=== PATIENT | male | born 2000 | race Caucasian/White ===

== ENCOUNTER 2024-09-03 13:25 | Emergency (ER) | payer OTHER, SELFPAY ==
[2024-09-03] VITALS (10 sets, daily range): BP systolic 117–143; BP diastolic 70–92; PULSE 58–65; RESP 16; TEMP 35.9; O2SAT 98–100; BMI 19.4
--- OUTSIDE RECORDS SUMMARY | 2024-09-03 13:27 | XMS_ITS | Clinical Summary ---
Author Organization [facility] Address [address] [address] Phone Care Team Providers Care Air Intercept Controller Supervisor Name Role Phone Choice, No Pcp-Patient Primary Care Provider Kamilla vailable Allergies Active Allergy Reactions Criticality Noted Date Comments Penicillins Hives High 11/22/2021 Medications No known medications Social History Tobacco Use Types Packs/Day Years Used Date Smoking Tobacco: Never Assessed Sex and Gender Information Value Date Recorded Sex Assigned at Not on file Legal Sex Male 9:46 AM CDT Gender Identity Not on file Sexual Orientation Not on file Last Filed Vital Signs Vital Sign Reading Time Taken Comments Blood Pressure 116/70 11/22/2021 8:10 PM CDT Pulse 75 11/22/2021 8:10 PM CDT Temperature 36.5 C (97.7 F) 11/22/2021 8:10 PM CDT Respiratory Rate 16 11/22/2021 8:10 PM CDT Oxygen Saturation 100% 11/22/2021 8:10 PM CDT Inhaled Oxygen Concentration - - Weight - - Height - - Body Mass Index - - Plan of Treatment Not on file Care Teams Air Intercept Controller Supervisor Relationship Specialty Start Date End Date Choice, No Pcp-Patient PCP - General 11/22/21
--- NOTE | 2024-09-03 13:50 | CRLHL7_ITS ---
For Patients: As a result of the Century Cures Act, medical imaging exams and procedure reports are released immediately into your electronic medical record. You may view this report before your referring provider. If you have questions, please contact your health care provider. Indication: FALL HIT HEAD Technique: CT of the head without contrast. Coronal and sagittal reformats. Bone and soft tissue windows. Comparison: No prior studies available for comparison at this institution. Findings: No acute intracranial hemorrhage or extra-axial collection. No evidence of acute cortical infarction. No mass effect or midline shift. Normal cerebral volume. The ventricles are normal in size, shape and contour. There is normal bae and white matter differentiation. The orbital contents are normal. No calvarial fractures. No lytic or sclerotic osseous lesions within the calvarium or skull base. Scalp and other imaged soft tissue structures are normal. Mastoid air cells are clear. Paranasal sinuses are well aerated. Impression: No acute intracranial abnormality. Please note that all CT scans at this facility use dose modulation, iterative reconstruction, and/or weight-based dosing when appropriate to reduce radiation dose to as low as reasonably achievable. Dictated by Royer Horner MD @ 09/03/2024 2:22:56 PM (Electronically Signed)
--- NOTE | 2024-09-03 13:53 | ED.HEATRA ---
HPI - Head Injury General Chief complaint: Head Injury/Pain Stated complaint: Fell and hit head Time Seen by Provider: 09/03/24 13:48 History of Present Illness HPI Narrative: This 23-year-old male comes in because of a head injury that occurred just prior to arrival. He was bent over working on a tub and fell backwards hitting his head in the occipital region. He states that he did not have loss of consciousness but shortly after when he got up he felt woozy and felt like his vision was turning white temporarily. He came in with his brother by private vehicle and the nurse noted that he seemed to be a bit unsteady when ambulating. He is not reporting headache or neck pain. He does have a small abrasion on the occipital region. Related Data Home Medications ?Medication ?Instructions ?Recorded ?Confirmed No Known Home Medications 09/03/24 09/03/24 Allergies Allergy/AdvReac Type Severity Reaction Status Date / Time Penicillins Allergy Verified 09/03/24 12:51 Review of Systems Status of ROS: Reports: 10 or more systems reviewed and unremarkable except as noted in History and below Narrative: Constitutional: No fevers, no weight gain or loss. Eyes: No discharge. No vision changes. HENT: No congestion, no sore throat, no ear pain. Cardiovascular: No chest pain, no palpitations. Respiratory: No shortness of breath, no wheezes, no cough. Gastrointestinal: No abdominal pain, no vomiting, no diarrhea. Genitourinary: No dysuria, no hematuria. Musculoskeletal: Normal range of motion. Skin: No rashes, no pruritis. Neurological: No dizziness, weakness, sensory change, speech change. Endo/Heme/Allergies: No bruising or bleeding. No polydipsia. Pysch: no suicidality, no anxiety, no insomnia. All other systems reviewed and are negative. Exam Narrative: Exam Narrative: Primary Survey: Vital Signs are within normal limits. Airway: Open. Breathing: Easy. Circulation: no obvious bleeding; normal capillary refill. Disability: GCS is 15. Normal pupillary response and motor movements. Secondary Survey: Head: Small superficial abrasion in the upper occipital region with no active bleeding. Small amount of swelling also in this area. Neck: No midline tenderness. ROM intact. Chest: Non tender. No external signs of trauma. Abdomen: Non tender. No rebound tenderness. Normal bowel sounds. Pelvis/Genitals: No tenderness to A/P and lateral stress. No blood at the urethral meatus. Extremities: Atraumatic. Back: No midline tenderness. No sign of injury. Primary and Secondary surveys are completed. The patient's GCS is 15. Const: Vital Signs, click to edit/add: Vital Signs - 24 hr 09/03/24 13:42 09/03/24 14:00 09/03/24 14:01 Temperature 96.7 F L Pulse Rate 65 60 Pulse Rate [Pulse Oximeter] 58 L Respiratory Rate 16 16 Blood Pressure 137/87 Blood Pressure [Ri ght Upper Arm] 142/88 H Pulse Oximetry 100 98 100 Oxygen Delivery Me thod Room Air 09/03/24 14:11 09/03/24 14:15 09/03/24 14:22 Temperature Pulse Rate 60 63 63 Pulse Rate [Pulse Oximeter] Respiratory Rate 16 16 Blood Pressure 143/91 H 122/79 Blood Pressure [Ri ght Upper Arm] Pulse Oximetry 100 100 99 Oxygen Delivery Me thod Room Air Course Vital Signs Vital signs: Initial Vital Signs Temperature 96.7 F L 09/03/24 13:42 Temperature Source Temporal Artery Scan 09/03/24 13:42 Pulse Rate 58 L 09/03/24 13:42 Respiratory Rate 16 09/03/24 13:42 Blood Pressure 142/88 H 09/03/24 13:42 Blood Pressure Mean 106 H 09/03/24 13:42 Blood Pressure Position Sitting 09/03/24 13:42 Pulse Oximetry 100 09/03/24 13:42 Oxygen Delivery Method Room Air 09/03/24 13:42 Vital Signs Temperature 96.7 F L 09/03/24 13:42 Pulse Rate 58 L 09/03/24 13:42 Respiratory Rate 16 09/03/24 13:42 Blood Pressure 142/88 H 09/03/24 13:42 Pulse Oximetry 100 09/03/24 13:42 Oxygen Delivery Method Room Air 09/03/24 13:42 Temperature 96.7 F L 09/03/24 13:42 Pulse Rate 63 09/03/24 14:22 Respiratory Rate 16 09/03/24 14:22 Blood Pressure 122/79 09/03/24 14:22 Pulse Oximetry 99 09/03/24 14:22 Oxygen Delivery Method Room Air 09/03/24 14:22 MDM - Head Injury MDM Narrative Medical decision making narrative: This patient comes in for evaluation of a head injury that occurred just prior to arrival. He has normal neurologic exam and has a small area of abrasion with rather mild underlying swelling in the occipital region of his head. He does not have any neck pain. His back appears normal. Actually does not report any headache now either. CT scan of his head is obtained and shows no acute findings. The patient is okay to be discharged home. Imaging Data CT scan - head: Radiologist's impression: No acute intracranial abnormality. Discharge Plan Discharge Clinical Impression: Closed head injury Patient Disposition: Home, Self-Care Condition: Improved Additional Instructions: Use [id number] medicines as needed and directed. Increase activity as tolerated. Follow up with MD return if worsening. Prescriptions: No Action No Known Home Medications Follow Up/Referrals: Provider,Not a Local [Primary Care Provider] - Stand Alone Forms: [employer] Info Instructions
--- OUTSIDE RECORDS SUMMARY | 2024-09-03 14:32 | XMS_ITS | Clinical Summary ---
Author Organization [facility] Address [address] [address] Phone Care Team Providers Care Rope Laying Machine Operator Name Role Phone Choice, No Pcp-Patient Primary [...] of Treatment Not on file Care Teams Rope Laying Machine Operator Relationship Specialty Start Date End Date Choice, No Pcp-Patient PCP - General 11/22/21
== END 2024-09-03 14:48 | disposition home or self-care (01) ==
PROVIDERS: Emergency Provider Emergency Medicine Emergency Medical Services
DX: S09.90XA Unspecified injury of head, initial encounter (principal); W18.00XA Striking against unspecified object with subsequent fall, initial encounter
CPT/HCPCS: 70450; 99283; 99284; 99291